=== PATIENT | female | born 1990 | race Caucasian/White ===

== ENCOUNTER 2017-09-04 05:55 | Emergency (ER) | payer SELFPAY ==
[~2017-09-04] VITALS: Ht 157.5 cm; Wt 59.0 kg
[2017-09-04] MEDS ORDERED: ACETAMINOPHEN 500 MG TAB (TYLENOL) PO ONE (06:45)
--- NOTE | 2017-09-04 07:03 | ED General ---
General Chief Complaint: Cough/Cold/Flu Symptoms Stated Complaint: SHAKING,POSS FEVER,NAUSEA Nursing Triage Note: PT PRESENTS TO ED WITH COMPLAINT OF CHEST DISCOMFORT, COUGH, RUNNY NOSE, HEAD ACHE, AND CHILLS. PT STATES THAT SHE TOOK IBPROFEN AN HOUR AGO. 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 She has a burning sensation with inspiration. She took ibuprofen 400 mg about one hour prior to arrival. Patient states she was also seen at [facility] recently for some breast pain. Lab work was done there are couple weeks ago. She states this discomfort is something different. Allergies and Home Medications Allergies Coded Allergies: No Known Drug Allergies (Unverified , 09/04/17) Constitutional: see HPI EENTM: see HPI Respiratory: see HPI Cardiovascular: no symptoms reported Gastrointestinal: no symptoms reported Genitourinary: no symptoms reported Musculoskeletal: see HPI Skin: no symptoms reported Psychiatric/Neurological: Headache Hematologic/Lymphatic: No Symptoms Reported Immunological/Allergic: no symptoms reported Past Dnwxmkm-Jzlede-Viqcvc Hx Patient Social History Alcohol Use: Denies Use Recreational Drug Use: No Smoking Status: Never a Smoker Recent Foreign Travel: No Contact w/Someone Who Travel: No Recent Infectious Disease Expo: No Recent Hopitalizations: No Seasonal Allergies Seasonal Allergies: No Surgeries History of Surgeries: No Respiratory History of Respiratory Disorde: No Cardiovascular History of Cardiac Disorders: No Neurological History of Neurological Disord: No Reproductive System : No Last Menstrual Period: Aug 29, 2017 Genitourinary History of Genitourinary Disor: No Gastrointestinal History of Gastrointestinal Di: No Musculoskeletal History of Musculoskeletal Dis: No Endocrine History of Endocrine Disorders: No HEENT History of HEENT Disorders: No Cancer History of Cancer: No Psychosocial History of Psychiatric Problem: No Integumentary History of Skin or Integumenta: No Blood Transfusions History of Blood Disorders: No Physical Exam Vital Signs Vital Sign - Last 12Hours 09/04/17 06:10 Temp 102.7 Pulse 125 Resp 20 B/P (MAP) 135/92 (106) Capillary Refill : Less Than 3 Seconds General Appearance: WD/WN, Mild Distress Eyes: Bilateral Eye Other (mildly erythematous and watery eyes) HEENT: PERRL/EOMI, TMs Normal, Normal ENT Inspection, Pharynx Normal Neck: Normal Inspection Respiratory: Lungs Clear, Normal Breath Sounds, No Accessory Muscle Use, No Respiratory Distress Cardiovascular: No Edema, No Murmur, Tachycardia (regular) Gastrointestinal: Normal Bowel Sounds, Non Tender, Soft Extremity: Normal Inspection, No Pedal Edema Neurologic/Psychiatric: Alert, Oriented x3, No Motor/Sensory Deficits, Normal Mood/Affect, 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 Skin: Normal Color, Warm/Dry Progress/Results/Core Measures Suspected Sepsis Recent Fever Within 48 Hours: No Infection Criteria Present: None New/Unexplained Altered Menta: No Sepsis Screen: No Definite Risk Sepsis Diagnosis: SIRS Temperature:102.7 Pulse: 125 Respiratory Rate: 20 Blood Pressure 135 /92 Mean: 106 Results/Orders Micro Results Microbiology 09/04/17 Influenza Types A,B Antigen (JANNETH) - Final, Complete My Orders Orders - ISIDORO VASQUEZ MD Influenza A And B Antigens (09/04/17 06:27) Acetaminophen Tablet (Tylenol Tablet) (09/04/17 06:45) Chest Pa/Lat (2 View) (09/04/17 06:44) Urine Bedside (09/04/17 06:46) Rx-Oseltamivir Caps (Rx-Tamiflu Caps) (09/04/17 07:11) Medications Given in ED Current Medications Medications Dose Ordered Sig/[place] Route Start Time Stop Time Status Last Admin Dose Admin Acetaminophen 1,000 mg ONCE ONCE PO 09/04/17 06:45 09/04/17 06:46 DC 09/04/17 06:47 1,000 MG Vital Signs/I&O Vital Sign - Last 12Hours 09/04/17 06:10 Temp 102.7 Pulse 125 Resp 20 B/P (MAP) 135/92 (106) Capillary Refill : Less Than 3 Seconds Blood Pressure Mean: 106 Progress Note : Progress Note Chest x-ray was ordered to further evaluate chest pain. Chest x-ray was unremarkable. Patient received Tylenol to further treat her fever. Bedside test was negative prior to chest x-ray. Patient had no means to obtain a Tamiflu prescription and pharmacies are not yet open. A take-home packet of Tamiflu was dispensed. Diagnostic Imaging Diagonstic Imaging: Xray Plain Films/CT/US/NM/MRI: chest Comments Chest x-ray viewed by me and report reviewed. See report below: NAME: NAA LAO [facility] REC#: [id number] PT STATUS: REG ER : 1990 PHYSICIAN: ISIDORO VASQUEZ MD ADMIT DATE: 09/04/17/ER Signed Date of Exam: 09/04/17 CHEST PA/LAT (2 VIEW) INDICATION: Flulike symptoms. PA and lateral views of the chest were obtained. FINDINGS: The heart size, mediastinal configuration, and pulmonary vascularity are within normal limits. There is no pleural effusion, pneumothorax, or pneumonia. The osseous structures are unremarkable. IMPRESSION: No acute cardiopulmonary abnormality. Dictated by: Dictated on workstation # [id number] Dict: 09/04/17709 Trans: 09/04/17712 Interpreted by: JOHNATHON NAIDU MD Electronically signed by: JOHNATHON NAIDU MD 09/04/17712 Departure Impression Impression: Primary Impression: Influenza A Additional Impression: Atypical chest pain Disposition: HOME, SELF-CARE Condition: Improved Departure-Patient Inst. Decision time for Depature: 07:00 Referrals: NO,LOCAL PHYSICIAN (PCP/Family) Primary Care Physician Patient Instructions: Flu, Adult (DC) Add. Discharge Instructions: Complete the 10 doses of Tamiflu as prescribed. You may take ibuprofen up to 600 mg every 6 hours as needed for pain and fever. You may also take Tylenol (acetaminophen) up to 650 mg every 6 hours as needed for more pain and fever relief. Drink plenty of water. Return to care if symptoms worsen. Do not go back to work for at least 48 hours. All discharge instructions reviewed with patient and/or family. Voiced understanding. Work/School Note: Work Release Form Date Seen in the Emergency Department: Sep 04, 2017 Return to Work: Sep 07, 2017 Restrictions: Return-No Fever (24hrs) ISIDORO VASQUEZ MD Sep 04, 2017 07:03
[2017-09-04] MEDS ORDERED: RX-OSELTAMIVIR 75 MG (TAMIFLU) BOX OF 10 PO STA (07:11)
--- NOTE | 2017-09-04 07:15 | Diagnostic Imaging Report ---
INDICATION: Flulike symptoms. PA and lateral views of the chest were obtained. FINDINGS: The heart size, mediastinal configuration, and pulmonary vascularity are within normal limits. There is no pleural effusion, pneumothorax, or pneumonia. The osseous structures are unremarkable. IMPRESSION: No acute cardiopulmonary abnormality. Dictated by: Dictated on workstation # [id number]
[2017-09-04 07:33] VITALS: BP 135/92
== END 2017-09-04 07:25 | disposition home or self-care (01) ==
LOC: ER 06:00
DX: J10.1 Influenza due to other identified influenza virus with other respiratory manifestations (principal); R07.89 Other chest pain
CPT/HCPCS: 71046; 84703; 87804; 99283

== ENCOUNTER → 2017-10-05 | Outpatient (CLI) | payer OTHER ==
--- NOTE | 2017-10-05 19:56 | Diagnostic Imaging Report ---
INDICATION: Bilateral breast pain. FINDINGS: Sonographic interrogation of the right and left breast at the areas of pain was performed. This corresponds to the 12 and 1 o'clock location of the left breast as well as 11 and 12 o'clock location of the right breast. No solid or cystic mass is identified. No suspicious abnormality is detected. IMPRESSION: No suspicious sonographic abnormality is identified. Continued close clinical and self breast exam is recommended to confirm stability. If symptoms persist or the patient develops a discrete palpable abnormality, directed diagnostic mammography would be recommended. ACR BI-RADS Category 1: Negative. Dictated by: Dictated on workstation # [id number]
== END ==
LOC: RAD 13:22
PROVIDERS: ATTEND Family Medicine
DX: N64.4 Mastodynia (principal)

== ENCOUNTER 2020-05-03 18:17 | Inpatient (IN) | payer OTHER ==
[~2020-05-03] VITALS: Ht 154 cm; Wt 72.7 kg
[2020-05-03] MEDS ORDERED: LACTATED RINGERS 1,000 ML IV SCH (18:28)
--- NOTE | 2020-05-03 18:28 | NUR ---
NAA LAO presented to unit via ambulation from ED, accompanied by family member, with c/o INDUCTION. NAA LAO weighed, gowned, voided, and to bed. EFHM and TOCO applied, VS taken. NAA LAO oriented to bed controls, call light, TV, heat, and A/C controls.
[2020-05-03] MEDS ORDERED: MINERAL OIL CONCENTRATE 99.9% 15 ML UDC TOP PRN (18:30)
[2020-05-03] MEDS ORDERED: MISOPROSTOL 100 MCG (CYTOTEC) TAB PO NR (18:30)
--- NOTE | 2020-05-03 18:32 | NUR ---
Dr. Myrick called for order clarification. Cytote order rec'd. notified of chlamydia detected in intake labs, no orders rec'd at this time.
[2020-05-03 19:00] VITALS: BP 127/83
[2020-05-03] MEDS ORDERED: PREN1TAB79 PO (19:15)
[2020-05-03] MEDS: D5 LR IV SOLUTION 1,000 ML IV SCH (19:31)
[2020-05-03 19:39] LABS: BASOPHILS % (AUTO) 0 % (0-10); EOSINOPHILS % (AUTO) 1 % (0-10); HEMATOCRIT 35 % (35-52); HEMOGLOBIN 11.2 g/dL (11.5-16.0); LYMPHOCYTES # (AUTO) 2.1 10^3/uL (1.0-4.0); LYMPHOCYTES % (AUTO) 25 % (12-44); MEAN CORPUSCULAR HEMOGLOBIN 27 pg (25-34); MEAN CORPUSCULAR HGB CONC 32 g/dL (32-36); MEAN CORPUSCULAR VOLUME 84 fL (80-99); MEAN PLATELET VOLUME 12.8 fL (9.0-12.2); MONOCYTES # (AUTO) 0.5 10^3/uL (0.0-1.0); MONOCYTES % (AUTO) 6 % (0-12); NEUTROPHILS # (AUTO) 5.8 10^3/uL (1.8-7.8); NEUTROPHILS % (AUTO) 68 % (42-75); PLATELET COUNT 224 10^3/uL (130-400); WHITE BLOOD COUNT 8.5 10^3/uL (4.3-11.0)
[2020-05-03] MEDS ORDERED: FLU QUADRIvalent (3YOA+) 60 mcg/0.5 ml 2020-21 (AFLURIA) IM ONE (19:45)
[2020-05-03 20:00] VITALS: BP 128/86
[2020-05-03 21:00] VITALS: BP 154/69
[2020-05-03 22:00] VITALS: BP 138/78
[2020-05-03] MEDS: CATHETER FLUSH 10 ML SYR IV SCH (22:00)
[2020-05-03 23:00] VITALS: BP 144/82
[2020-05-03] MEDS ORDERED: fentaNYL 2 mcg/ml BUPIVA 0.125 100 ML ONE (23:52)
--- NOTE | 2020-05-03 23:55 | NUR ---
Dr. Myrick called and updated on sve, and pt's pain, epidural order received.
[2020-05-04] VITALS (42 sets, daily range): BP systolic 100–167; BP diastolic 56–105
--- NOTE | 2020-05-04 | NUR ---
Scottie Nagel CRNA called for epidural placement.
[2020-05-04] MEDS ORDERED: OXYTOCIN PRE-MIX DRIP 500 ML IV ONE (00:12)
[2020-05-04] MEDS ORDERED: LACTATED RINGERS 1,000 ML IV SCH (01:04)
--- NOTE | 2020-05-04 01:04 | NUR ---
Brittani RAMIRES and Rick Nagel CRNA here for epidural placement. Procedure explained, consent reviewed and signed by anesthesia. Questions answered to patient's satisfaction. Time out taken to verify correct patient/procedure. Patient up to side of bed, assisted into sitting position. Betadine prep done x3 and sterile drape applied. Local done, see anesthesia record. Test dose given, see anesthesia record for drug and dosage. Epidural catheter secured in place. Epidural placement complete. Assisted back into bed, monitors adjusted. Epidural dosed, see anesthesia record. Epidural of Sufenta/Bupvicaine @__10____cc/hr stated per pump. Patient tolerated procedure well.
[2020-05-04] MEDS ORDERED: EPIDURAL (fentaNYL 2 MCG/ML BUPIVA 0.125%)100 ML BAG EPI SCH (01:15)
[2020-05-04] MEDS ORDERED: ONDANSETRON 4 MG/2 ML (SDV) Z0FRAN IV PRN (01:15)
[2020-05-04] MEDS ORDERED: METOCLOPRAMIDE INJ 10 MG/2 ML (REGLAN) IV PRN (01:15)
[2020-05-04] MEDS ORDERED: NALOXONE 0.4 MG/ML 1 ML (NARCAN) VIAL IV PRN ×2 (01:15)
[2020-05-04] MEDS ORDERED: diphenhydrAMINE 50 MG/ML INJ (BENADRYL) IV PRN (01:15)
[2020-05-04] MEDS: MISOPROSTOL 100 MCG (CYTOTEC) TAB PO SCH ×2 (01:19→05:15)
--- NOTE | 2020-05-04 02:17 | History & Physical-OB ---
OB - Chief Complaint & HPI Date/Time Date of Admission: Date of Admission: May 03, 2020 at 18:17 Date seen by a Provider: May 04, 2020 Time Seen by a Provider: 02:11 Chief Complaint/History OB-Reason for Admission/Chief: Induction of Labor Hx : 2 Hx Para: 1 Expected Date of Delivery: Apr 25, 2020 Gestational Age in Weeks: 41 Gestational Age in Days: 1 Indication for induction: post dates History of Labs O+, Ab neg Rub Imm Chyl + GC neg GBS neg RPR NR Normal 1 hr GTT Allergies and Home Medications Allergies Coded Allergies: No Known Drug Allergies (Unverified , 09/04/17) Patient Home Medication List Home Medication List Reviewed: Yes OB - History Hx of Present Care: Yes Obstetrical Complications: None Information Induced Hypertension: No Maternal Gestational Diabetes: No Hemorrhage: No Obstetrical History Hx : 2 Hx Para: 1 Hx # Term Pregnancies: 1 Delivery History Adverse Rxn to Tranfusion: No Patient Past Medical History N/A Social History/Family History HIV/AIDS: No Recent Infectious Disease Expo: No Sexually Transmitted Disease: No Alcohol Use: Denies Use Recreational Drug Use: No Smoking Cessation: Never smoker Immunizations Rubella: immune RPR/VDRL: Negative GBS Status: Negative HBsAG: Unknown OB - Admission Exam Physical Exam Vitals: Vital Signs 05/03/20 05/04/20 19:00 00:00 Temp 36.6 Pulse 78 Resp 18 B/P (MAP) 136/76 (96) Pulse Ox 98 O2 Delivery Room Air HEENT: NCAT Heart: Rhythm Normal Lungs: Clear Cervical Dilatation: 10cm Effacement: 100% Station: -1 Membranes: Ruptured Heart Rate: 140's Decelerations: No Decelerations Short Term Variability: Present Intensity: Firm Copeland Scoring Tool (Modified) Dilation (cm): 1-2cm (1) Effacement (%): 80-100% (3) Descent/Station: -1,0 (2) Cervix Consistency: Medium(1) Cervix Position: Middle/Mid-Position (1) Add 1 point for: Each previous vaginal delivery (1) Subtract 1 point for: Postdate (-1) Copeland Score: 8 Labs Laboratory Tests Test 05/03/20 18:57 Range/Units White Blood Count 8.5 4.3-11.0 10^3/uL Red Blood Count 4.13 3.80-5.11 10^6/uL Hemoglobin 11.2 L 11.5-16.0 g/dL Hematocrit 35 35-52 % Mean Corpuscular Volume 84 80-99 fL Mean Corpuscular Hemoglobin 27 25-34 pg Mean Corpuscular Hemoglobin Concent 32 32-36 g/dL Red Cell Distribution Width 14.2 10.0-14.5 % Platelet Count 224 130-400 10^3/uL Mean Platelet Volume 12.8 H 9.0-12.2 fL Immature Granulocyte % (Auto) 0 % Neutrophils (%) (Auto) 68 42-75 % Lymphocytes (%) (Auto) 25 12-44 % Monocytes (%) (Auto) 6 0-12 % Eosinophils (%) (Auto) 1 0-10 % Basophils (%) (Auto) 0 0-10 % Neutrophils # (Auto) 5.8 1.8-7.8 10^3/uL Lymphocytes # (Auto) 2.1 1.0-4.0 10^3/uL Monocytes # (Auto) 0.5 0.0-1.0 10^3/uL Eosinophils # (Auto) 0.0 0.0-0.3 10^3/uL Basophils # (Auto) 0.0 0.0-0.1 10^3/uL Immature Granulocyte # (Auto) 0.0 0.0-0.1 10^3/uL OB - Assessment/Plan/Diagnosis Assessment Assessment: induction of labor Admission Dx Term 41 week gestation Admission Status: Inpatient Order (span 2 midnights) Reason for Inpatient Admission: Labor Plan Plan: Induction Induction Method: per Misoprostol Protocol Other Plan 29 yo @ 41.3 wga here for IOL Plan - Cytotec protocol - GBS neg - Patient desires epidural Copy Copies To 1: SANTHOSH BARAJAS MD, HOLLY R MD May 04, 2020 02:16
[2020-05-04] MEDS: D5 LR IV SOLUTION 1,000 ML IV SCH ×2 (02:41→12:00)
[2020-05-04] MEDS ORDERED: WATER (STERILE) FOR INJECTION 10 ML ONE (04:49)
[2020-05-04] MEDS ORDERED: ceFAZolin INJECTION 0 MG ONE (04:49)
[2020-05-04] MEDS ORDERED: ceFAZolin INJECTION 1,000 MG ONE (04:50)
[2020-05-04] MEDS ORDERED: FAMOTIDINE 20MG/2ML IV (PEPCID) ONE (04:51)
[2020-05-04] MEDS ORDERED: CITRIC ACID/SOB CIT (BICITRA) 30 ML UDC ONE (04:51)
[2020-05-04] MEDS ORDERED: LACTATED RINGERS 1,000 ML IV PRN ×2 (04:59)
[2020-05-04] MEDS ORDERED: CITRIC ACID/SOB CIT (BICITRA) 30 ML UDC PO ONE (05:00)
[2020-05-04] MEDS ORDERED: METOCLOPRAMIDE INJ 10 MG/2 ML (REGLAN) IV ONE (05:00)
[2020-05-04] MEDS ORDERED: FAMOTIDINE 20MG/2ML IV (PEPCID) IV ONE (05:00)
[2020-05-04] MEDS ORDERED: CATHETER FLUSH 10 ML SYR IV PRN (05:00)
[2020-05-04] MEDS ORDERED: ceFAZolin INJECTION 1,000 MG in WATER (STERILE) FOR INJECTION 10 ML IV ONE (05:15)
--- NOTE | 2020-05-04 05:19 | Labor Progress Note ---
Labor Progress Note Labor Progress Note Date Seen by Provider: May 04, 2020 Time Seen by Provider: 05:04 Subjective: Pushing with patient, have been pushing for 1.5 hrs with no further progress. Temperature is starting to trend up and patient is feeling hot. Last temp 37.8. Patient is wearing out. Assessment/Plan: Khloe Luna is a (29 /Para 2 / 1,Gestational Age (wks)41.3 wga her for IOL for post dates - Failure of descent - Probable Chorioamnioitis - Called for Urgent C/section Vitals - Labs Vital Signs - I&O Vital Signs Date Time Temp Pulse Resp B/P (MAP) Pulse Ox O2 Delivery O2 Flow Rate FiO2 05/04/20 03:00 91 18 103/56 (72) Room Air 05/04/20 02:45 90 18 100/59 (73) Room Air 05/04/20 02:30 96 18 106/62 (77) Room Air 05/04/20 02:15 81 18 120/63 (82) 100 Non Rebreather 12.00 05/04/20 02:00 83 18 121/59 (79) 100 Non Rebreather 12.00 05/04/20 01:45 92 18 124/61 (82) 98 Room Air 05/04/20 01:35 95 18 113/64 (80) 99 Room Air 05/04/20 01:15 36.9 109 18 123/71 (88) 99 Room Air 05/04/20 01:10 104 18 129/72 (91) 99 Room Air 05/04/20 01:05 96 18 122/69 (86) 99 Room Air 05/04/20 01:00 100 18 116/71 (86) 99 Room Air 05/04/20 00:57 103 18 126/76 (93) 99 Room Air 05/04/20 00:54 105 18 120/76 (91) 99 Room Air 05/04/20 00:51 103 18 136/69 (91) 99 Room Air 05/04/20 00:50 93 18 146/66 (92) 99 Room Air 05/04/20 00:48 104 18 159/74 (102) 99 Room Air 05/04/20 00:46 105 18 162/77 (105) 99 Room Air 05/04/20 00:40 111 18 149/70 (96) 99 Room Air 05/04/20 00:30 95 18 167/77 (107) 99 Room Air 05/04/20 00:00 36.6 78 18 136/76 (96) Room Air 05/03/20 23:00 82 18 144/82 (102) Room Air 05/03/20 22:00 84 18 138/78 (98) Room Air 05/03/20 21:00 86 18 154/69 (97) Room Air 05/03/20 20:00 36.8 99 20 128/86 (100) Room Air 05/03/20 19:00 36.7 101 20 98 Room Air I & O 05/04/20 07:00 Intake Total 2000 ml Balance 2000 ml Labs Laboratory Tests 05/03/20 18:57: White Blood Count 8.5, Red Blood Count 4.13, Hemoglobin 11.2L, Hematocrit 35, Mean Corpuscular Volume 84, Mean Corpuscular Hemoglobin 27, Mean Corpuscular Hemoglobin Concent 32, Red Cell Distribution Width 14.2, Platelet Count 224, Mean Platelet Volume 12.8H, Immature Granulocyte % (Auto) 0, Neutrophils (%) (Auto) 68, Lymphocytes (%) (Auto) 25, Monocytes (%) (Auto) 6, Eosinophils (%) (Auto) 1, Basophils (%) (Auto) 0, Neutrophils # (Auto) 5.8, Lymphocytes # (Auto) 2.1, Monocytes # (Auto) 0.5, Eosinophils # (Auto) 0.0, Basophils # (Auto) 0.0, Immature Granulocyte # (Auto) 0.0 SANTHOSH BARAJAS MD May 04, 2020 05:19
[2020-05-04] MEDS ORDERED: ONDANSETRON 4 MG/2 ML (SDV) Z0FRAN ONE (05:23)
[2020-05-04] MEDS ORDERED: KETOROLAC 30 MG/ML VIAL ONE (05:23)
[2020-05-04] MEDS ORDERED: fentaNYL INJECTION 100 MCG/2 ML AMP ONE (05:23)
--- NOTE | 2020-05-04 05:34 | Progress Note ---
Standard Progress Note Progress Notes/Assess & Plan Date Seen by a Provider: May 04, 2020 Time Seen by a Provider: 05:29 Progress/Assessment & Plan 29 yo @ 41.3 weeks admitted for IOL by Dr. Myrick due to post dates. Progression to complete and 0 zero station, but with an hour of pushing, no progression in station took place. CPD suspected, and will proceed with for failure to descend. Risk of the procedure reviewed with the patient using interpretation, all questions answered. Will proceed once OR staff ready. IKE DEGROOT DO May 04, 2020 05:33
--- NOTE | 2020-05-04 05:43 | NUR ---
OR crew at bedside, Pt disconnected from external monitors. Epidural infusion off and remains in place for anes. Pt transferred to OR via Bed with crew.
[2020-05-04] MEDS ORDERED: OXYTOCIN PRE-MIX DRIP 500 ML IV SCH (05:56)
[2020-05-04] MEDS ORDERED: ONDANSETRON 4 MG/2 ML (SDV) Z0FRAN IVP PRN (06:00)
[2020-05-04] MEDS ORDERED: TETANUS,DIPTH,PERTUSS P/F (BOOSTRIX) 0.5 ML VIAL IM SCH (06:00)
[2020-05-04] MEDS ORDERED: HYDROcodone/APAP 5 MG/325 MG (LORTAB) TAB PO PRN (06:00)
[2020-05-04] MEDS ORDERED: MEASLES,MUMPS,RUBELLA 1 EA INJ SC SCH (06:00)
[2020-05-04] MEDS ORDERED: METHYLERGONOVINE 0.2 MG/ML (METHERGINE) AMP ONE (06:15)
[2020-05-04] MEDS ORDERED: BUPIVACAINE 0.25% 30 ML (SENSORCAINE) VIAL ONE (06:43)
[2020-05-04] MEDS: KETOROLAC 30 MG/ML VIAL IV SCH ×3 (06:50→21:24)
[2020-05-04] MEDS ORDERED: IBUP-844 PO (07:06)
[2020-05-04] MEDS ORDERED: ACHD5005 PO (07:06)
[2020-05-04] MEDS ORDERED: DCS100C PO (07:06)
--- NOTE | 2020-05-04 07:10 | NUR ---
BOWSER CATHETER REMOVED, PERICARE COMPLETED, PAD AND PANTIES APPLIED, FFU/2 LT LOCHIA NOTED, PT SET UP IN BED FOR BREAKFAST TRAY.
--- NOTE | 2020-05-04 07:11 | Discharge Inst-Women's Service ---
Discharge Inst-Women's Serv Depart Medication/Instructions New, Converted or Re-Newed RX: RX on Chart Final Diagnosis POD 2 PLTCS Problems Reviewed?: Yes Consults/Follow Up Additional Follow Up: Yes Orders/Referrals Dr. Arias in 7-[address] Myrick in 6 weeks Activity Activity: Activity as Tolerated Driving Instructions: No Driving for 1 Week NO SMOKING: NO SMOKING Nothing Inside Vagina: No Douching, No Clemons, No Tampons Diet Discharge Diet: No Restrictions Symptoms to Report to : Bleeding Excessive, Pain Increased, Fever Over 101 Degrees F, Vaginal Bleeding Increase, Questions/Concerns For Any Problems or Questions: Contact Your Physician Skin/Wound Care Infection Signs and Symptoms: Increased Redness, Foul Odor of Wound, Increased Drainage, Skin Itchy or Has a Rash, Increased Swelling, Temperature Above 101 F Operative Area Clean and Dry: Keep Incision Clean/Dry Stitches/[place]/Dermabond: Dermabond, Care of Stitches Bathing Instructions: IKE Salter DO May 04, 2020 07:11
--- NOTE | 2020-05-04 07:50 | NUR ---
REPORT FROM RECOVERY DELIA RN.
--- NOTE | 2020-05-04 07:54 | NUR ---
INITIAL ASSESSMENT COMPLETED AT BEDSIDE, VSS, PTS SISTER AT SIDE, INFANT AT BESIDE. SEE INERVENTIONS FOR DETAILED ASSESSMENTS. PITOCIN STARTED.
--- NOTE | 2020-05-04 08:30 | NUR ---
PTS S/O HERE, SECURITY BRACELET GIVEN TO PTS S/O AND MOTHER OF .
[2020-05-04] MEDS: CATHETER FLUSH 10 ML SYR IV SCH ×3 (08:54→21:16)
[2020-05-04] MEDS: DOCUSATE SODIUM 100 MG (COLACE) CAP PO SCH ×2 (13:23→21:24)
--- NOTE | 2020-05-04 13:26 | OPERATIVE REPORT ---
DATE OF SERVICE: PREOPERATIVE DIAGNOSES: 1. A 29-year-old G2, P1 at 41 weeks and 3 days gestation. 2. Cephalopelvic disproportion. 3. Failure to descend. POSTOPERATIVE DIAGNOSES: 1. A 29-year-old G2, P1 at 41 weeks and 3 days gestation. 2. Cephalopelvic disproportion. 3. Failure to descend. PROCEDURE PERFORMED: Primary low transverse section. SURGEON: Junaid Degroot DO ANESTHESIA: Spinal. ESTIMATED BLOOD LOSS: 600 mL. URINE OUTPUT: 50 mL. URINE OUTPUT: 100 mL clear at the end of the procedure. FLUIDS: 1400 mL of lactated Ringer's solution. FINDINGS: A live female infant weighing 8 pounds 9 ounces, Apgars of 7 and 8. Grossly normal appearing uterus, bilateral fallopian tubes and ovaries. SPECIMEN SENT: Placenta. INDICATIONS FOR PROCEDURE: This patient, I was contacted on approximately 4:[address] Myrick for a Cephalopelvic disproportion. The patient had progressed to complete and was induced by Dr. Myrick. However, after being complete and having the patient pushed for well over an hour, there was little to no progression of the presenting head and due to the suspicion of cephalopelvic disproportion, Dr. Myrick recommended proceeding with delivery. Risks of the procedure were discussed with the patient in detail once I arrived including the risks of bleeding, infection, damage to surrounding structures including, but not limited to bowel, bladder, ureter, kidneys, possible need for reoperation, postoperative complications that occurred, risk from anesthesia and even . After everything was discussed with the patient, consent was obtained in the preoperative area and the patient was taken to the operating room. OPERATIVE REPORT IN DETAIL: Once in the operating room, spinal analgesia was found to be adequate. She was placed in a supine position with leftward tilt, prepped and draped in a normal sterile fashion. A timeout was performed and anesthesia was tested. I then proceeded with making a Pfannenstiel skin incision with a knife and carried it down to the underlying fascia using Bovie cautery. The fascial incision extended laterally using Bovie cautery. Superior aspect of fascial incision was then grasped with Loida clamps, tented upwards and dissected off the underlying rectus muscles. The inferior aspect of the fascial incision was then grasped with Loida clamps, tented up and dissected off the underlying rectus muscles. Rectus muscles were dissected down the midline using both blunt and sharp dissection, which exposed the peritoneum, which I entered bluntly and extended using blunt traction. Ori ring retractor was placed in the peritoneal incision, which offers excellent lateral and sidewall retraction. I then identified the lower uterine segment, which was found to be thinned out and I made a low transverse incision to the vesicouterine peritoneum and bluntly dissected off the lower uterine segment creating a bladder flap in the process of doing so. I then proceeded with my myotomy until membranes were visualized, at which point, I extended the uterine incision laterally and superiorly using bandage scissors. Amniotomy through the incision was then performed in the process of doing this. The infant was found in the vertex presentation. With gentle fundal pressure, the infant's head was elevated up to the incision, where the head was delivered through the incision. The nares and oropharynx were bulb suctioned. Anterior and posterior shoulders were delivered. A nuchal cord was reduced x1 and then the was then brought out into the operative field where the cord was doubly clamped and cut and infant was handed off to Dr. Myrick, who was present for delivery. Cord blood was collected. Three-vessel cord with intact placenta was delivered spontaneously thereafter. IV Pitocin was initiated to facilitate uterine contraction. Uterine fundus confirmed by manual massage. The uterus was then exteriorized and cleared of all endometrial clots and debris. I then proceeded with closing the uterine incision using 0 Vicryl suture in a running locked fashion. Second layer of imbricating 0 Monocryl was placed and excellent hemostasis was noted after doing this; however, there was still some bogginess to the uterine fundus after closing the uterus, so 0.2 mg of Methergine were ordered to be given IM via the anesthesia. I then placed the uterus back within the pelvis and copiously irrigated the pelvis using normal saline. Once again, there was no active bleeding noted from any of my dissection planes. I then removed the Ori ring retractor and then proceeded with closing the peritoneum using 3-0 Vicryl suture in a running fashion. The rectus muscles were reapproximated using 3-0 Vicryl suture in an interrupted fashion. The fascia was reapproximated using 0 Vicryl suture in running fashion. Subcutaneous tissue was reapproximated using 3-0 plain interrupted subcutaneous stitch and skin was reapproximated using 4-0 Monocryl in a running subcuticular. Dermabond was applied to incision and sterile dressing with adhesive white tape. The patient tolerated the procedure well and was taken to the recovery area in stable condition. Lap and sponge count was correct at the end of the procedure. Instrument count was correct as well. Job ID: [id number] DocumentID: [id number] Dictated Date: 05/04/2020 07:27:44 Sales Merchandiser Date: 05/04/2020 13:24:49 Dictated By: JUNAID DEGROOT DO
--- NOTE | 2020-05-04 15:15 | NUR ---
PT AMBULATED TO BR WITH STANDBY ASSIST, VOIDED WITHOUT DIFFICULTY, PERICARE COMPLETED, PT SITTING UP IN CHAIR WITH S/O AND AT BEDSIDE.
--- NOTE | 2020-05-04 17:20 | NUR ---
PT C/O PAIN 2 LORTAB GIVEN PO FOR PAIN. FRESH ICE WATER, PT SITTING UP IN CHAIR.
[2020-05-05 00:55] VITALS: BP 115/76
[2020-05-05 05:33] VITALS: BP 122/83
[2020-05-05] MEDS: CATHETER FLUSH 10 ML SYR IV SCH ×2 (05:33→05:34)
[2020-05-05] MEDS: KETOROLAC 30 MG/ML VIAL IV SCH (05:33)
[2020-05-05 07:03] LABS: BASOPHILS % (AUTO) 0 % (0-10); EOSINOPHILS # (AUTO) 0.1 10^3/uL (0.0-0.3); EOSINOPHILS % (AUTO) 0 % (0-10); HEMATOCRIT 31 % (35-52); HEMOGLOBIN 9.7 g/dL (11.5-16.0); LYMPHOCYTES # (AUTO) 1.8 10^3/uL (1.0-4.0); LYMPHOCYTES % (AUTO) 15 % (12-44); MEAN CORPUSCULAR HEMOGLOBIN 27 pg (25-34); MEAN CORPUSCULAR HGB CONC 31 g/dL (32-36); MEAN CORPUSCULAR VOLUME 86 fL (80-99); MEAN PLATELET VOLUME 12.7 fL (9.0-12.2); MONOCYTES # (AUTO) 0.5 10^3/uL (0.0-1.0); MONOCYTES % (AUTO) 4 % (0-12); NEUTROPHILS # (AUTO) 9.7 10^3/uL (1.8-7.8); NEUTROPHILS % (AUTO) 80 % (42-75); PLATELET COUNT 183 10^3/uL (130-400); WHITE BLOOD COUNT 12.1 10^3/uL (4.3-11.0)
--- NOTE | 2020-05-05 08:44 | Postpartum Progress Note ---
Note Note Day # 1 Subjective: Patient is without complaints. Ambulating, voiding. Tolerating a regular diet without nausea or vomiting. Normal lochia. Pain is well controlled with oral pain medications. Objective: Physical Exam: General - Alert and oriented, no apparent distress Abdomen - Soft, appropriately tender to palpation, non-distended, fundus firm at umbilicus Extremities - no edema, negative Felix's bilaterally Incision- c/d/i Assessment: POD 1 PLTCS Acute blood loss anemia Plan: Routine care. Encourage breast feeding. Encourage ambulation. Ferrous sulfate supplementation. Plan for discharge tomorrow Vitals - Labs Vital Signs - I&O Vital Signs Date Time Temp Pulse Resp B/P (MAP) Pulse Ox O2 Delivery O2 Flow Rate FiO2 05/05/20 05:33 36.1 81 18 122/83 (96) 98 Room Air 05/05/20 00:55 36.2 79 18 115/76 (89) 98 Room Air 05/04/20 21:24 36.0 79 20 113/75 (88) 97 Room Air 05/04/20 17:25 37.0 64 20 128/64 (85) 98 Room Air 05/04/20 13:25 37.0 68 20 122/67 (85) 97 Room Air 05/04/20 09:30 94 20 125/59 (81) 98 Room Air I & O 05/05/20 07:00 Intake Total 2440 ml Output Total 2390 ml Balance 50 ml Labs Laboratory Tests 05/04/20 09:41: Syphilis Serology Non-Reactive 05/05/20 06:15: White Blood Count 12.1H, Red Blood Count 3.59L, Hemoglobin 9.7L, Hematocrit 31L, Mean Corpuscular Volume 86, Mean Corpuscular Hemoglobin 27, Mean Corpuscular Hemoglobin Concent 31L, Red Cell Distribution Width 14.5, Platelet Count 183, Mean Platelet Volume 12.7H, Immature Granulocyte % (Auto) 0, Neutrophils (%) (Auto) 80H, Lymphocytes (%) (Auto) 15, Monocytes (%) (Auto) 4, Eosinophils (%) (Auto) 0, Basophils (%) (Auto) 0, Neutrophils # (Auto) 9.7H, Lymphocytes # (Auto) 1.8, Monocytes # (Auto) 0.5, Eosinophils # (Auto) 0.1, Basophils # (Auto) 0.0, Immature Granulocyte # (Auto) 0.0 IKE DEGROOT DO May 05, 2020 08:44
[2020-05-05] MEDS ORDERED: FERR325T18 PO (08:45)
[2020-05-05] MEDS: DOCUSATE SODIUM 100 MG (COLACE) CAP PO SCH ×2 (09:20→20:19)
--- NOTE | 2020-05-05 09:36 | Anesthesia-Regional Post-Op ---
Regional Patient Condition Mental Status: Alert, Oriented x3 Circulation: Same as Pre-Op Headache: Absent Sensation: Full Recovery Motor Block: Absent Post Op Complications Complications None Follow Up Care/Instructions Patient Instructions None needed. Anesthesia/Patient Condition Patient is doing well, no complaints, stable vital signs, no apparent adverse anesthesia problems. No complications reported per nursing. DELIA YOUNG CRNA May 05, 2020 09:36
--- NOTE | 2020-05-05 11:15 | NUR ---
PT UP TO SHOWER. +PERICARE, LINENS CHANGED, NEW GOWN. NO FURTHER NEEDS AT THIS TIME.
[2020-05-05] MEDS: IBUPROFEN 600 MG (MOTRIN) TAB PO SCH ×2 (11:50→17:53)
[2020-05-05 12:00] VITALS: BP 114/77
[2020-05-05 18:00] VITALS: BP 119/78
[2020-05-05 20:10] VITALS: BP 121/65
--- NOTE | 2020-05-05 20:15 | NUR ---
INITIAL SHFIFT ASSESSMENT DONE. VSS. COLACE ADMINISTERED.
--- NOTE | 2020-05-05 22:05 | NUR ---
PT RESTING OFF ET ON. DENIES ANY NEEDS AT THIS TIME.
--- NOTE | 2020-05-06 00:10 | NUR ---
MOTRIN ADMINISTERED. FRESH WATER GIVEN. PT DENIES ANY NEEDS OF C/O'S AT THIS TIME.
[2020-05-06 00:15] VITALS: BP 120/77
[2020-05-06] MEDS: IBUPROFEN 600 MG (MOTRIN) TAB PO SCH (00:20)
--- NOTE | 2020-05-06 06:15 | NUR ---
SCHEDULED MOTRIN ADMINISTERED. PT DENIES ANY NEEDS AT THIS TIME.
[2020-05-06 07:40] VITALS: BP 127/73
[2020-05-06] MEDS: DOCUSATE SODIUM 100 MG (COLACE) CAP PO SCH (08:51)
--- NOTE | 2020-05-06 09:11 | Postpartum Progress Note ---
Note Note Day # 2 Subjective: Patient is without complaints. Ambulating, voiding. Tolerating a regular diet without nausea or vomiting. Normal lochia. Pain is well controlled with oral pain medications. Objective: Physical Exam: General - Alert and oriented, no apparent distress Abdomen - Soft, appropriately tender to palpation, non-distended, fundus firm at umbilicus Extremities - no edema, negative Felix's bilaterally Incision- c/d/i Assessment: POD 2 PLTCS Acute blood loss anemia Plan: Routine care. Encourage breast feeding. Encourage ambulation. Ferrous sulfate supplementation. Plan for discharge today Vitals - Labs Vital Signs - I&O Vital Signs Date Time Temp Pulse Resp B/P (MAP) Pulse Ox O2 Delivery O2 Flow Rate FiO2 05/06/20 07:40 36.9 73 16 127/73 (91) 97 Room Air 05/06/20 00:20 36.5 05/06/20 00:15 36.5 73 16 120/77 (91) 97 05/05/20 20:10 36.6 79 16 121/65 (83) 97 05/05/20 18:00 36.4 83 18 119/78 (92) 97 Room Air 05/05/20 12:00 36.5 84 18 114/77 (89) 98 Room Air I & O 05/06/20 07:00 Intake Total 1320 ml Output Total 1300 ml Balance 20 ml IKE DEGROOT DO May 06, 2020 09:11
--- NOTE | 2020-05-06 11:45 | NUR ---
1145- DISCHARGE INSTRUCTIONS GIVEN VIA LANGUAGE LINE. PT VERBALIZES UNDERSTANDING. NO FURTHER QUESTIONS AT THIS TIME. 1220- PT ASSISTED TO VEHICLE VIA WHEELCHAIR IN STABLE CONDITION ACCOMPANIED BY THIS RN, FOB, , AND BELONGINGS.
[2020-05-06 12:20] VITALS: BP 127/73
--- NOTE | 2020-05-07 16:53 | Physician Query Clarification ---
PQ-Conflicting Diagnosis Admission/Discharge Admission Date: May 03, 2020 at 18:17 Discharge Date: May 06, 2020 at 12:20 The medical record reflects the following clinical scenario: History/Risk Factors: [list no more than 2] Clinical Findings: [list no more than 2] Treatment: [list no more than 2] Question: Probable Chorioamnioitis is documented on your 05/04 progress note, with no other mention in the record. Is Chorioamnioitis a valid diagnosis? 1. Yes 2. No 3. Other, with explanation of clinical findings 4. Clinically undetermined, no explanation for clinical findings. PHYSICIAN RESPONSE Do you agree w/Consulting Dx?: No Please remember a lack of response to the above will prompt a phone page by [facility]/Coding staff. In responding to this query, please exercise your independent professional judgment. The purpose of this communication is to more accurately reflect the complexity of your patients condition. The fact that a question is asked does not imply that any particular answer is desired or expected. Thank you for your timely response to this clarification. Requestors name: Cammie THIS PHYSICIAN QUERY FORM IS A PERMANENT PART OF THE MEDICAL RECORD CAMMIE GUTIERREZ May 07, 2020 16:53 SANTHOSH BARAJAS MD May 07, 2020 17:40
== END 2020-05-06 12:20 | disposition home or self-care (01) | DRG 787 ==
LOC: LDRP 18:17
PROVIDERS: ADMIT Family Medicine; ATTEND Family Medicine
PROC: 3E0DXGC Introduction of Other Therapeutic Substance into Mouth and Pharynx, External Approach (ICD-10-PCS; 2020-05-03)
PROC: 10D00Z1 Extraction of Products of Conception, Low, Open Approach (ICD-10-PCS; principal; 2020-05-04 05:47)
DX: O48.0 Post-term pregnancy (principal); D62 Acute posthemorrhagic anemia; Z3A.41 41 weeks gestation of pregnancy; Z37.0 Single live birth; O65.4 Obstructed labor due to fetopelvic disproportion, unspecified; O64.8XX0 Obstructed labor due to other malposition and malpresentation, not applicable or unspecified; O90.81 Anemia of the puerperium; Z23 Encounter for immunization
CPT/HCPCS: 36415; 85025; 86780; 86850; 86900; 86901; 90686; 90715